=== PATIENT | male | born 2000 | race African-American/Black ===

== ENCOUNTER 2022-06-14 20:28 | Emergency (ER) | payer OTHER, SELFPAY ==
[2022-06-14] MEDS ORDERED: LIDOCAINE 1% MPF 5 ML VIAL ONE (21:24)
[2022-06-14] MEDS ORDERED: BUPIVACAINE 0.5% PF 10 ML VIAL ONE (21:25)
--- NOTE | 2022-06-14 22:06 | ER ---
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 Patient stated was playing basketball and was hit in the mouth by another players elbow. Patient denies any LOC. Coronavirus screen: Vaccine status: Patient reports being unvaccinated. Client denies travel out of the [place] in the last 14 days. At this time, the client does not indicate any symptoms associated with coronavirus-19. 20:46 Method Of Arrival: Ambulatory pf1 20:46 Ebola Screen: Patient negative for fever greater than or equal to 101.5 degrees pf1 Fahrenheit, and additional compatible Ebola Virus Disease symptoms. Initial Sepsis Screen: Does the patient meet any 2 criteria? No. Patient's initial sepsis screen is negative. Does the patient have a suspected source of infection? No. Patient's initial sepsis screen is negative. Risk Assessment: Do you want to hurt yourself or someone else? Patient reports no desire to harm self or others. Onset of symptoms was June 14, 2022. 20:46 Acuity: YVETTE 4 pf1 Historical: - Allergies: 21:02 No Known Allergies; pf1 - Home Meds: 21:02 None [Active]; pf1 - PMHx: 21:02 Seizure; pf1 - PSHx: 21:02 None; pf1 - Immunization history:: Adult Immunizations not up to date, Last tetanus immunization: < 10 years ago Flu vaccine is not up to date. - Social history:: Smoking status: Patient denies any tobacco usage or history of. Patient uses street drugs, marijuana, Patient/guardian denies using alcohol. Screenin:27 [facility] ED Fall Risk Assessment (Adult) History of falling in the last 3 months, lg3 including since admission No falls in past 3 months (0 pts). Abuse screen: Denies threats or abuse. Injuries were caused by another. Nutritional screening: No deficits noted. Tuberculosis screening: No symptoms or risk factors identified. Assessment: 21:27 General: Appears in no apparent distress. comfortable, Behavior is calm, cooperative. lg3 Pain: Complains of pain in lower vermilion border Pain currently is 4 out of 10 on a pain scale. Neuro: No deficits noted. Manley Agitation-Sedation Scale (RASS): 0 - Alert and Calm Level of Consciousness is awake, alert, obeys commands, Oriented to person, place, time, situation. Cardiovascular: No deficits noted. Denies chest pain, shortness of breath, Capillary refill < 3 seconds Clubbing of nail beds is absent JVD is absent Patient's skin is warm and dry. Respiratory: No deficits noted. Airway is patent Trachea midline Respiratory effort is even, unlabored, Respiratory pattern is regular, symmetrical. GI: No deficits noted. No signs and/or symptoms were reported involving the gastrointestinal system. : No deficits noted. No signs and/or symptoms were reported regarding the genitourinary system. EENT: No deficits noted. No signs and/or symptoms were reported regarding the EENT system. Derm: Wound noted lower vermilion border. Musculoskeletal: No deficits noted. No signs and/or symptoms reported regarding the musculoskeletal system. Circulation, motion, and sensation intact. Range of motion: intact in all extremities. Injury Description: Laceration sustained to lower vermilion border moderate bleeding noted at this time. Vital Signs: 20:46 BP 151 / 82; Pulse 68; Resp 18; Temp 98.6; Pulse Ox 100% on R/A; Weight 104.33 kg; pf1 Height 6 ft. 1 in. (185.42 cm); Pain 0/10; 20:46 Body Mass Index 30.34 (104.33 kg, 185.42 cm) pf1 ED Course: 20:32 Patient arrived in ED. ja2 20:50 Armond Burton NP is PHCP. pm1 20:50 Kei Coello MD is Attending Physician. pm1 21:02 Triage completed. pf1 21:04 Leelee Langston, LUCAS is Primary Nurse. lg3 21:27 Patient has correct armband on for positive identification. Placed in gown. Bed in low lg3 position. Call light in reach. Side rails up X 1. Client placed on continuous cardiac and pulse oximetry monitoring. NIBP monitoring applied. Door closed. Noise minimized. Warm blanket given. Family accompanied patient. 22:18 Arm band placed on right wrist. lg3 22:18 Assist provider with laceration repair on lower vermilion border using sutures. Set up lg3 tray. Performed by Armond Burton NP Patient tolerated well. Patient did not have IV access during this emergency room visit. Administered Medications: 22:04 Drug: Bupivacaine (0.5 %) 10 ml Volume: 10 ml; Route: Infiltration; lg3 22:17 Follow up: Response: No adverse reaction lg3 22:04 Drug: Lidocaine (1 %) 5 ml Volume: 5 ml; Route: Infiltration; lg3 22:17 Follow up: Response: No adverse reaction lg3 22:16 Drug: Tetanus-Diphtheria Toxoid Adult 0.5 ml {Bow String Maker: [employer]methods ([employer]). Exp: lg3 10/20/2122. Lot #: [id number]. } Route: IM; Site: right deltoid; 22:17 Follow up: Response: (VIS) Vaccine information sheet provided today. Questions and/or lg3 concerns addressed. VIS edition date: Nov 19, 2020.; No adverse reaction 22:16 Drug: Augmentin (Amoxicillin-Clavulanate) 875 mg Route: PO; lg3 22:17 Follow up: Response: No adverse reaction lg3 22:16 Drug: Ibuprofen 800 mg Route: PO; lg3 22:17 Follow up: Response: No adverse reaction lg3 Medication: 22:19 Vaccine Information Statement (VIS) provided today. Questions and/or concerns lg3 addressed. VIS edition date: November 19, 2020. Outcome: 22:05 Discharge ordered by . pm1 22:18 Discharged to home ambulatory, with family. lg3 22:18 Condition: stable 22:18 Discharge instructions given to patient, family, Instructed on discharge instructions, follow up and referral plans. medication usage, wound care, Demonstrated understanding of instructions, follow-up care, medications, wound care, Prescriptions given X 2. 22:19 Patient left the ED. lg3 Signatures: Armond Burton, CHRISTINA SLAB MILLER OPERATOR pm1 Leelee Langston, RN RN lg3 Марина Amato2 Dorothy hopkins, RN RN pf1
--- NOTE | 2022-06-14 22:06 | EDPHYS ---
Physician Documentation [facility] Name: Justen Salgado Age: 21 yrs Sex: Male : 2000 Arrival Date: 06/14/2022 Time: 20:32 Bed 14 Private MD: ED Physician Kei Coello HPI: 06/14 20:57 This 21 yrs old Black Male presents to ER via Ambulatory with complaints of Lip Injury. pm1 20:57 The patient presents with Laceration to lip. The problem is located in the mouth. pm1 Onset: The symptoms/episode began/occurred just prior to arrival. Duration: The symptoms are continuous. Modifying factors: The symptoms are alleviated by nothing, the symptoms are aggravated by nothing. Associated signs and symptoms: The patient has no apparent associated signs or symptoms, Pertinent negatives: dental pain or loose teeth. Severity of symptoms: in the emergency department the symptoms have improved, decreased bleeding. The patient has not experienced similar symptoms in the past. The patient has not recently seen a physician. Patient was elbowed while playing basketball. Historical: - Allergies: 21:02 No Known Allergies; pf1 - Home Meds: 21:02 None [Active]; pf1 - PMHx: 21:02 Seizure; pf1 - PSHx: 21:02 None; pf1 - Immunization history:: Adult Immunizations not up to date, Last tetanus immunization: < 10 years ago Flu vaccine is not up to date. - Social history:: Smoking status: Patient denies any tobacco usage or history of. Patient uses street drugs, marijuana, Patient/guardian denies using alcohol. ROS: 20:57 Constitutional: Negative for fever, chills, and weight loss. pm1 20:57 Cardiovascular: Negative for chest pain, palpitations, and edema, Respiratory: Negative for shortness of breath, cough, wheezing, and pleuritic chest pain, Skin: Negative for injury, rash, and discoloration, Neuro: Negative for headache, weakness, numbness, tingling, and seizure. 20:57 ENT: Positive for lip injury, Negative for dental pain. 20:57 All other systems are negative. Exam: 20:57 Constitutional: This is a well developed, well nourished patient who is awake, alert, pm1 and in no acute distress. Head/Face: Normocephalic, atraumatic. 20:57 Back: No spinal tenderness. No costovertebral tenderness. Full range of motion. Skin: Warm, dry with normal turgor. Normal color with no rashes, no lesions, and no evidence of cellulitis. MS/ Extremity: Pulses equal, no cyanosis. Neurovascular intact. Full, normal range of motion. 20:57 ENT: Mouth: laceration approximately 4 cm in length on the inside of patient's lower lip. 2.5 cm laceration present to lower lip below the tasneem border. 20:57 Cardiovascular: Exam negative for acute changes, Rate: normal, Rhythm: regular, Pulses: no pulse deficits are appreciated. 20:57 Respiratory: Exam negative for acute changes, respiratory distress, shortness of breath. 20:57 Neuro: Exam negative for acute changes, Orientation: is normal, Mentation: is normal, Motor: is normal, moves all fours. Vital Signs: 20:46 BP 151 / 82; Pulse 68; Resp 18; Temp 98.6; Pulse Ox 100% on R/A; Weight 104.33 kg; pf1 Height 6 ft. 1 in. (185.42 cm); Pain 0/10; 20:46 Body Mass Index 30.34 (104.33 kg, 185.42 cm) pf1 Laceration: 22:00 Wound Repair of 4cm ( 1.6in ) subcutaneous laceration to inner lower lip. Irregularly pm1 shaped.. Distal neuro/vascular/tendon intact. Anesthesia: Local anesthetic administered with 4 mls of Lido/Marcaine. Wound prep: Extensive cleansing by me, Wound irrigation with saline by me, Wound explored extensively, Copious irrigation. Skin closed with 7 4-0 Vicryl using simple sutures and sterile technique. Patient tolerated well. 22:00 Wound Repair of 2.5cm ( 1.0in ) subcutaneous laceration to lower lip below tasneem pm1 border. Irregularly shaped.. Distal neuro/vascular/tendon intact. Anesthesia: Local anesthetic administered with 1 mls of Lido/Marcaine. Wound prep: Extensive cleansing with hibiclenz by me, Wound irrigation with saline by me, Wound explored extensively, Copious irrigation. Skin closed with 5 5-0 Prolene using simple sutures and sterile technique. Dressed with Neosporin. Patient tolerated well. MDM: 20:53 Patient medically screened. pm1 22:00 Data reviewed: vital signs. pm1 22:03 Counseling: I had a detailed discussion with the patient and/or guardian regarding: the pm1 historical points, exam findings, and any diagnostic results supporting the discharge/admit diagnosis, the need for outpatient follow up, to return to the emergency department if symptoms worsen or persist or if there are any questions or concerns that arise at home, suture removal in 7-10 days. 06/14 20:57 Order name: Dressing - Wound; Complete Time: 21:18 pm1 06/14 20:57 Order name: Gloves, Sterile; Complete Time: 21:18 pm1 06/14 20:57 Order name: Prolene, Sutures; Complete Time: 21:19 pm1 06/14 20:57 Order name: Setup Suture Tray; Complete Time: 21:19 pm1 06/14 20:57 Order name: Vicryl, Sutures; Complete Time: 21:19 pm1 Administered Medications: 22:04 Drug: Bupivacaine (0.5 %) 10 ml Volume: 10 ml; Route: Infiltration; lg3 22:17 Follow up: Response: No adverse reaction lg3 22:04 Drug: Lidocaine (1 %) 5 ml Volume: 5 ml; Route: Infiltration; lg3 22:17 Follow up: Response: No adverse reaction lg3 22:16 Drug: Tetanus-Diphtheria Toxoid Adult 0.5 ml {Black Pickler: [employer] ([employer]). Exp: lg3 10/20/2122. Lot #: [id number]. } Route: IM; Site: right deltoid; 22:17 Follow up: Response: (VIS) Vaccine information sheet provided today. Questions and/or lg3 concerns addressed. VIS edition date: Nov 19, 2020.; No adverse reaction 22:16 Drug: Augmentin (Amoxicillin-Clavulanate) 875 mg Route: PO; lg3 22:17 Follow up: Response: No adverse reaction lg3 22:16 Drug: Ibuprofen 800 mg Route: PO; lg3 22:17 Follow up: Response: No adverse reaction lg3 Disposition: 23:55 Co-signature as Attending Physician, Kei Coello MD I reviewed the patient's care rt provided by the Advanced Practice Provider and agree with the diagnosis and treatment plan. Disposition Summary: 06/14/22 22:05 Discharge Ordered Location: Home pm1 Problem: new pm1 Symptoms: have improved pm1 Condition: Stable pm1 Diagnosis - Laceration of lip and oral cavity without foreign body pm1 Followup: pm1 - With: Emergency Department - When: As needed - Reason: Worsening of condition Followup: pm1 - With: Private Physician - When: 7 - 10 days - Reason: Recheck today's complaints, Continuance of care, Staple/Suture removal, Re-evaluation by your physician Discharge Instructions: - Discharge Summary Sheet pm1 - Mouth Laceration pm1 Forms: - Medication Reconciliation Form pm1 - Thank You Letter pm1 - Antibiotic Education pm1 - Prescription Opioid Use pm1 Prescriptions: - Augmentin 875-125 mg Oral Tablet - take 1 tablet by ORAL route every 12 hours for 10 days; 20 tablet; Refills: 0, pm1 Product Selection Permitted - Diclofenac Sodium 75 mg Oral tablet,delayed release (DR/EC) - take 1 tablet by ORAL route 2 times per day As needed; 30 tablet; Refills: 0, pm1 Product Selection Permitted Signatures: Armond Burton, CHRISTINA LEAD TECHNICIAN pm1 Leelee Langston, LUCAS RN lg3 Kei Coello MD MD rt Dorothy hopkins RN RN pf1
[2022-06-14] MEDS ORDERED: AMOX/K CLAV 875 MG TAB ONE (22:12)
[2022-06-14] MEDS ORDERED: IBUPROFEN 400 MG TAB ONE (22:13)
[2022-06-14 22:29] VITALS: BP 151/82; TEMP 98.6; O2SAT 100
== END 2022-06-14 22:19 | disposition home or self-care (01) ==
LOC: ER 20:28
PROC: 0HQ1XZZ Repair Face Skin, External Approach (ICD-10-PCS; principal; 2022-06-14)
DX: S01.511A Laceration without foreign body of lip, initial encounter (principal)
CPT/HCPCS: J2001

== ENCOUNTER 2022-06-29 00:10 | Emergency (ER) | payer SELFPAY ==
--- NOTE | 2022-06-29 00:43 | ER ---
Nurse's Notes [facility] Name: Justen Salgado Age: 21 yrs Sex: Male : 2000 Arrival Date: 06/29/2022 Time: 00:13 Bed 12 Private MD: Diagnosis: Encounter for removal of sutures;Laceration without foreign body of lip Presentation: 06/29 00:21 Chief complaint: Patient states: pt had sutures to lip and needs them removed. bb Coronavirus screen: At this time, the client does not indicate any symptoms associated with coronavirus-19. Ebola Screen: No symptoms or risks identified at this time. Initial Sepsis Screen: Does the patient meet any 2 criteria? No. Patient's initial sepsis screen is negative. Does the patient have a suspected source of infection? No. Patient's initial sepsis screen is negative. Risk Assessment: Do you want to hurt yourself or someone else? Patient reports no desire to harm self or others. Onset of symptoms was June 29, 2022. 00:21 Method Of Arrival: Ambulatory bb 00:21 Acuity: YVETTE 5 bb Triage Assessment: 00:33 General: Appears in no apparent distress. Behavior is calm, cooperative. Pain: Denies bb pain. Neuro: Level of Consciousness is awake, alert, obeys commands, Oriented to person, place, time, situation. Cardiovascular: No deficits noted. Respiratory: Respiratory effort is even, unlabored. GI: No signs and/or symptoms were reported involving the gastrointestinal system. Derm: suture line to inside and outside of lower lip intact. Musculoskeletal: Circulation, motion, and sensation intact. Historical: - Allergies: 00:33 No Known Allergies; bb - Immunization history:: Adult Immunizations unknown. - Social history:: Smoking status: unknown. Assessment: 00:34 Reassessment: No changes from previously documented assessment. Dr Mathew at bedside bb for suture removal. Vital Signs: 00:21 BP 136 / 75; Pulse 57; Resp 16 S; Temp 98.4(O); Pulse Ox 100% on R/A; bb ED Course: 00:13 Patient arrived in ED. ja2 00:25 Shaun Mathew MD is Attending Physician. sp4 00:33 Triage completed. bb 00:33 Arm band placed on Patient placed in an exam room, on a stretcher. bb Administered Medications: No medications were administered Outcome: 00:42 Discharge ordered by . sp4 Signatures: Lena Coronel RN RN bb Alexander, Jessica ja2 Potepalov, Sergey, MD MD sp4
--- NOTE | 2022-06-29 00:43 | EDPHYS ---
Physician Documentation [facility] Name: Justen Salgado Age: 21 yrs Sex: Male : 2000 Arrival Date: 06/29/2022 Time: 00:13 Bed 12 Private MD: ED Physician Shaun Mathew HPI: 06/29 00:25 This 21 yrs old Black Male presents to ER via Unassigned with complaints of Suture sp4 Removal. Historical: - Allergies: 00:33 No Known Allergies; bb - Immunization history:: Adult Immunizations unknown. - Social history:: Smoking status: unknown. Vital Signs: 00:21 BP 136 / 75; Pulse 57; Resp 16 S; Temp 98.4(O); Pulse Ox 100% on R/A; bb MDM: 00:33 Patient medically screened. sp4 Administered Medications: No medications were administered Disposition Summary: 06/29/22 00:42 Discharge Ordered Location: Home sp4 Problem: new sp4 Symptoms: are resolved sp4 Condition: Stable sp4 Diagnosis - Encounter for removal of sutures sp4 - Laceration without foreign body of lip sp4 Followup: sp4 - With: Private Physician - When: As needed - Reason: Forms: - Medication Reconciliation Form sp4 - Thank You Letter sp4 - Antibiotic Education sp4 - Prescription Opioid Use sp4 Signatures: Lena Coronel RN RN Shaun Toledo MD MD sp4
[2022-06-29 09:48] VITALS: BP 136/75; TEMP 98.4; O2SAT 100
== END 2022-06-29 00:44 | disposition home or self-care (01) ==
LOC: ER 00:10
DX: Z48.02 Encounter for removal of sutures (principal)
CPT/HCPCS: 99281

== ENCOUNTER 2023-01-01 22:15 | Emergency (ER) | payer SELFPAY ==
--- NOTE | 2023-01-02 03:06 | EDPHYS ---
Physician Documentation [facility] Name: Justen Salgado Age: 22 yrs Sex: Male : 2000 Arrival Date: 01/01/2023 Time: 22:15 Bed IW2 Private MD: ED Physician Shaun Mathew HPI: 01/02 00:50 This 22 yrs old Black Male presents to ER via Ambulatory with complaints of Finger kb swelling/pain, patient denies any injury. 00:50 The patient or guardian reports decreased range of motion, pain, swelling. The kb complaints affect the left little finger. Context: The problem was sustained at home, resulted from an unknown cause, woke up with symptoms. Onset: The symptoms/episode began/occurred this morning. Modifying factors: The symptoms are alleviated by nothing, the symptoms are aggravated by nothing. Associated signs and symptoms: The patient has no apparent associated signs or symptoms. Severity of symptoms: At their worst the symptoms were moderate, in the emergency department the symptoms are unchanged. The patient has not experienced similar symptoms in the past. The patient has not recently seen a physician. Historical: - Allergies: 01/01 22:50 No Known Allergies; me1 - PMHx: 22:50 Seizure; me1 - PSHx: 22:50 None; me1 - Immunization history:: Adult Immunizations up to date. - Social history:: Smoking status: Patient denies any tobacco usage or history of. ROS: 01/02 00:49 Constitutional: Negative for fever, chills, and weight loss, kb MS/extremity: Positive for decreased range of motion, erythema, pain, swelling, tenderness, of the left little finger, 00:49 All other systems are negative, kb Exam: 00:49 Constitutional: This is a well developed, well nourished patient who is awake, alert, kb and in no acute distress. Head/Face: Normocephalic, atraumatic. ENT: Moist Mucous membranes Cardiovascular: Regular rate Respiratory: Respirations even and unlabored. No increased work of breathing. Talking in full sentences Skin: Warm, dry with normal turgor. Normal color. Neuro: Awake and alert, GCS 15, oriented to person, place, time, and situation. Moves all extremities. Normal gait. 00:49 Musculoskeletal/extremity: Extremities: grossly normal except: noted in the left little finger: decreased ROM, erythema, pain, swelling, ROM: limited active range of motion due to pain, Circulation is intact in all extremities. Sensation intact. Vital Signs: 01/01 22:47 BP 134 / 84; Pulse 58; Resp 16; Temp 98.8(O); Pulse Ox 100% on R/A; Weight 114.99 kg; me1 Height 6 ft. 1 in. ; Pain 10/10; 22:47 Body Mass Index 33.44 (114.99 kg, 185.42 cm) me1 22:47 Pain Scale: Adult me1 MDM: 22:42 Patient medically screened. kb 01/02 00:50 Differential diagnosis: dislocation, closed fracture, contusion, cellulitis. Data kb reviewed: vital signs, nurses notes. 16:01 Counseling: I had a detailed discussion with the patient and/or guardian regarding the kb historical points, exam findings, and any diagnostic results supporting the discharge/admit diagnosis, radiology results, the need for outpatient follow up, a orthopedic surgeon, to return to the emergency department if symptoms worsen or persist or if there are any questions or concerns that arise at home. 01/01 22:47 Order name: Hand Left 3 View XRAY kb Administered Medications: No medications were administered Disposition: 08:34 Co-signature as Attending Physician, Shaun Mathew MD I agree with the assessment sp4 and plan of care. I reviewed the patient's care provided by the Advanced Practice Provider and agree with the diagnosis and treatment plan. Disposition Summary: 01/02/23 03:05 Discharge Ordered Notes: Location: Home as6 Condition: Stable as6 Diagnosis - Other fracture of fifth metacarpal bone, right hand as6 Forms: - Medication Reconciliation Form as6 - Thank You Letter as6 - Antibiotic Education as6 - Prescription Opioid Use as6 - Patient Portal Instructions as6 - Leadership Thank You Letter as6 Signatures: Dispatcher [employer] Mirtha Renteria FNP-C FNP-Aldo Rosen RN RN as6 Shaun Mathew MD MD sp4 Tasneem Amin RN RN me1 Corrections: (The following items were deleted from the chart) 00:49 00:49 MS/extremity: Positive for decreased range of motion, erythema, pain, swelling, kb tenderness, kb
--- NOTE | 2023-01-02 03:06 | ER ---
Nurse's Notes [facility] Name: Justen Salgado Age: 22 yrs Sex: Male : 2000 Arrival Date: 01/01/2023 Time: 22:15 Bed IW2 Private MD: Diagnosis: Other fracture of fifth metacarpal bone, right hand Presentation: 01/01 22:47 Chief complaint: Patient states: c/o left 5th digit swelling and pain that started last me1 night. Coronavirus screen: Vaccine status: Patient reports being unvaccinated. Ebola Screen: No symptoms or risks identified at this time. Initial Sepsis Screen: Does the patient meet any 2 criteria? No. Patient's initial sepsis screen is negative. Does the patient have a suspected source of infection? No. Patient's initial sepsis screen is negative. Risk Assessment: Do you want to hurt yourself or someone else? Patient reports no desire to harm self or others. Onset of symptoms was December 31, 2022. 22:47 Method Of Arrival: Ambulatory me1 22:47 Acuity: YVETTE 4 me1 Historical: - Allergies: 22:50 No Known Allergies; me1 - PMHx: 22:50 Seizure; me1 - PSHx: 22:50 None; me1 - Immunization history:: Adult Immunizations up to date. - Social history:: Smoking status: Patient denies any tobacco usage or history of. Assessment: 01/02 03:04 General: see downtime forms. as6 Vital Signs: 01/01 22:47 BP 134 / 84; Pulse 58; Resp 16; Temp 98.8(O); Pulse Ox 100% on R/A; Weight 114.99 kg; me1 Height 6 ft. 1 in. ; Pain 10/10; 22:47 Body Mass Index 33.44 (114.99 kg, 185.42 cm) me1 22:47 Pain Scale: Adult me1 ED Course: 22:19 Patient arrived in ED. jj6 22:42 Mirtha Walsh FNP-C is PHCP. kb 22:42 Shaun Mathew MD is Attending Physician. kb 22:50 Triage completed. me1 22:50 Arm band placed on Patient placed in waiting room. me1 01/02 00:37 Hand Left 3 View XRAY In Process Unspecified. EDMS Administered Medications: No medications were administered Outcome: 03:05 Discharge ordered by as6 03:05 Patient left the ED. as6 Signatures: Dispatcher [employer] EDMirtha Payan FNP-C FNP-Farzana Ma jj6 Aldo Naranjo RN RN as6 aTsneem Amin RN RN me1
[2023-01-02 03:09] VITALS: BP 134/84; TEMP 98.8; O2SAT 100
--- NOTE | 2023-01-02 17:55 | RAD REPORT ---
EXAM DESCRIPTION: RAD - Hand Left 3 View - 01/02/2023 12:35 am CLINICAL HISTORY: 22 years Male, PAIN COMPARISON: None. FINDINGS: 3 views of the left hand. Normal osseous mineralization. Tiny linear osseous structure bruno ng the distal ulnar aspect of the fifth digit middle phalanx. This could represent an acute displaced fracture fragment. No joint dislocation. Mild soft tissue edema at the level of the wrist. No radiop aque foreign body IMPRESSION: Possible tiny displaced fracture fragment along the distal aspect of the fifth digit mid dle phalanx. Correlate with site of pain/trauma. Electronically signed by: Luna Tierney MD 01/02/2023 1:22 AM CDT Due to temporary technical issues with the PACS/Fluency reporting system, reports are being signed by the in house radiologists without review as a courtesy to insure prompt reporting. The interpreting radiologist is fully responsible for the content of the report
== END 2023-01-02 03:05 | disposition home or self-care (01) ==
LOC: ER 22:15
DX: S62.396A Other fracture of fifth metacarpal bone, right hand, initial encounter for closed fracture (principal)

== ENCOUNTER 2024-06-20 13:29 | Emergency (ER) | payer OTHER, SELFPAY ==
[2024-06-20] MEDS ORDERED: NA CHLORIDE 0.9% 1,000 ML ONE (14:27)
[2024-06-20 14:28] LABS: Absolute Basophils 0.1 K/uL (0-0.5); Absolute Eosinophils 0.1 K/uL (0-0.5); Absolute Lymphocytes (CBC) 2.4 K/uL (0.7-4.9); Absolute Monocytes 0.9 K/uL (0.1-1.3); Absolute Neutrophil 4.4 K/uL (1.8-8.0); Basophils % 0.8 % (0-1.3); Eosinophils % 1.8 % (0-4.4); Hematocrit 45.9 % (39.6-49.0); Hemoglobin 16.5 g/dL (13.6-17.9); Lymphocytes % 30.6 % (15.3-44.8); MCHC 35.9 g/dL (32.0-36.0); MCV 89.2 fL (80-100); MPV 8.2 fL (7.6-11.3); Monocytes % 11.5 % (3.3-12.3); Neutrophils % 55.3 % (41.7-73.7); Nucleated Red Blood Cells % 0.1 % (0-0); Platelets 327 thou/uL (152-406); RBC Red Blood Cell Count 5.15 M/uL (4.33-5.43); Red Cell Distribution Width 12.8 % (12.1-15.2)
[2024-06-20 14:35] LABS: PTT, Activated Partial Thromb 30.6 SECONDS (24.3-36.9); Protime INR 1.24
[2024-06-20 14:47] LABS: Barbiturates NEGATIVE (NEGATIVE); Benzodiazepines NEGATIVE (NEGATIVE); Cocaine NEGATIVE (NEGATIVE); METHAMPHETAM NEGATIVE (NEGATIVE); Methadone NEGATIVE (NEGATIVE); Opiates NEGATIVE (NEGATIVE); Phencyclidine NEGATIVE (NEGATIVE); THC Cannibis POSITIVE (NEGATIVE)
[2024-06-20 14:49] LABS: ALT/SGPT 18 U/L (16-61); AST/SGOT 14 U/L (15-37); Albumin 4.2 g/dL (3.4-5.0); Albumin/Globulin Ratio 1.1 (1.1-1.8); Alkaline Phosphatase 60 U/L (45-117); Anion Gap 10.5 mEq/L (5.0-15.0); BUN Blood Urea Nitrogen 15 mg/dL (7-18); Bicarbonate 26 mEq/L (21-32); Bilirubin Direct 0.3 mg/dL (0-0.2); Bilirubin Indirect, Calculated 0.9 mg/dL (0.2-0.8); Bilirubin Total 1.2 mg/dL (0.2-1.0); Globulin 3.9 g/dL (2.3-3.5); Glomerular Filtration Rate 73 ml/min (=/>90); Glucose Level 118 mg/dL (74-106); Potassium 3.5 mEq/L (3.5-5.1); Protein, Total 8.1 g/dL (6.4-8.2); Sodium Level 137 mEq/L (136-145)
--- NOTE | 2024-06-20 15:25 | EDPHYS ---
Physician Documentation [facility] Name: Justen Salgado Age: 23 yrs Sex: Male : 2000 Arrival Date: 06/20/2024 Time: 13:29 Bed 20 Private MD: ED Physician Kaushik Dill HPI: 06/20 15:17 This 23 yrs old Black Male presents to ER via EMS with complaints of Dizziness. harinder 15:17 The patient presents with dizziness, generalized weakness. Onset: The symptoms/episode harinder began/occurred just prior to arrival, this morning. Context: occurred at home, occurred while the patient was at rest. Modifying factors: The symptoms are alleviated by nothing, the symptoms are aggravated by nothing. Associated signs and symptoms: The patient has no apparent associated signs or symptoms. Severity of symptoms: At their worst the symptoms were mild in the emergency department the symptoms are unchanged. Patient's baseline: Neuro: alert and fully oriented. The patient has not experienced similar symptoms in the past. Historical: - Allergies: 13:36 No Known Allergies; me1 - Home Meds: 13:36 None [Active]; me1 - PMHx: 13:36 Seizure; me1 - PSHx: 13:36 None; me1 - Immunization history:: Adult Immunizations up to date. - Infectious Disease History:: Denies. - Social history:: Smoking status: Reported history of juuling and/or vaping. Patient uses street drugs, marijuana. - Family history:: not pertinent. ROS: 15:17 Constitutional: Negative for fever, chills, and weight loss, Eyes: Negative for injury, harinder pain, redness, and discharge, ENT: Negative for injury, pain, and discharge, Neck: Negative for injury, pain, and swelling, Cardiovascular: Negative for chest pain, palpitations, and edema, Respiratory: Negative for shortness of breath, cough, wheezing, and pleuritic chest pain, Abdomen/GI: Negative for abdominal pain, nausea, vomiting, diarrhea, and constipation, Back: Negative for injury and pain, : Negative for injury, bleeding, discharge, and swelling, MS/Extremity: Negative for injury and deformity, Skin: Negative for injury, rash, and discoloration, Neuro: Negative for headache, weakness, numbness, tingling, and seizure, Psych: Negative for depression, anxiety, suicide ideation, homicidal ideation, and hallucinations, Allergy/Immunology: Negative for hives, rash, and allergies, Endocrine: Negative for neck swelling, polydipsia, polyuria, polyphagia, and marked weight changes, Hematologic/Lymphatic: Negative for swollen nodes, abnormal bleeding, and unusual bruising, Exam: 15:21 Constitutional: This is a well developed, well nourished patient who is awake, alert, harinder and in no acute distress. Head/Face: Normocephalic, atraumatic. Eyes: Pupils equal round and reactive to light, extra-ocular motions intact. Lids and lashes normal. Conjunctiva and sclera are non-icteric and not injected. Cornea within normal limits. Periorbital areas with no swelling, redness, or edema. ENT: Nares patent. No nasal discharge, no septal abnormalities noted. Tympanic membranes are normal and external auditory canals are clear. Oropharynx with no redness, swelling, or masses, exudates, or evidence of obstruction, uvula midline. Mucous membranes moist. Neck: Trachea midline, no thyromegaly or masses palpated, and no cervical lymphadenopathy. Supple, full range of motion without nuchal rigidity, or vertebral point tenderness. No Meningismus. Chest/axilla: Normal chest wall appearance and motion. Nontender with no deformity. No lesions are appreciated. Cardiovascular: Regular rate and rhythm with a normal S1 and S2. No gallops, murmurs, or rubs. Normal PMI, no JVD. No pulse deficits. Respiratory: Lungs have equal breath sounds bilaterally, clear to auscultation and percussion. No rales, rhonchi or wheezes noted. No increased work of breathing, no retractions or nasal flaring. Abdomen/GI: Soft, non-tender, with normal bowel sounds. No distension or tympany. No guarding or rebound. No evidence of tenderness throughout. Back: No spinal tenderness. No costovertebral tenderness. Full range of motion. Male : Normal genitalia with no discharge or lesions. Skin: Warm, dry with normal turgor. Normal color with no rashes, no lesions, and no evidence of cellulitis. MS/ Extremity: Pulses equal, no cyanosis. Neurovascular intact. Full, normal range of motion., bilateral aka Neuro: Awake and alert, GCS 15, oriented to person, place, time, and situation. Cranial nerves II-XII grossly intact. Motor strength 5/5 in all extremities. Sensory grossly intact. Cerebellar exam normal. Normal gait. Psych: Awake, alert, with orientation to person, place and time. Behavior, mood, and affect are within normal limits. 15:21 Musculoskeletal/extremity: ROM: no acute changes, intact in all extremities, Circulation is intact in all extremities. Sensation intact. Compartment Syndrome exam of affected extremity: is normal. no pain, no numbness, no tingling, no sensation deficit, no palor, no weak pulses, Joints: All joints appear normal with full range of motion. Weight bearing: able to fully bear weight, DVT Exam: No signs of deep vein thrombosis. no pain, no swelling, no tenderness, negative Homans' sign noted on exam, no appreciated bluish discoloration, no erythema, no increased warmth, Calves: are non-tender, have equal circumference, Vital Signs: 13:31 BP 121 / 78; Pulse 120; Resp 20; Temp 98.6; Pulse Ox 96% ; Weight 136.08 kg; Height 6 me1 ft. 1 in. ; Pain 0/10; 14:00 BP 123 / 84; Pulse 91; Resp 16; Pulse Ox 96% ; me1 14:21 BP 139 / 81 Supine; Pulse 97; me1 14:21 BP 144 / 77 Sitting; Pulse 106; me1 14:21 BP 131 / 80 Standing; Pulse 90; me1 15:00 BP 117 / 83; Pulse 69; Resp 17; Pulse Ox 99% ; me1 15:39 BP 115 / 80; Pulse 70; Resp 16; Temp 98.2; Pulse Ox 97% ; me1 13:31 Body Mass Index 39.58 (136.08 kg, 185.42 cm) me1 13:31 Pain Scale: Adult me1 MDM: 13:34 Medical Screening Exam initiated harinder 15:22 Differential diagnosis: cardiac arrhythmia, CVA, generalized weakness, GI bleed, harinder hypovolemia, idiopathic dizziness, near-syncope, vertigo. Data reviewed: vital signs, nurses notes, lab test result(s), EKG, radiologic studies, plain films. Consideration of Admission/Observation Escalation of care including admission/observation considered. I considered the following discharge prescriptions or medication management in the emergency department Medications were administered in the Emergency Department. See MAR. Independent interpretation of the following test(s) in the Emergency Department EKG: See my EKG interpretation above. Test considered but Not performed: Ultrasound no venous doppler. Historians other than the Patient: Family Member: family well informed. Care significantly affected by the following chronic conditions: seizures. Counseling: I had a detailed discussion with the patient and/or guardian regarding the historical points, exam findings, and any diagnostic results supporting the discharge/admit diagnosis, lab results, radiology results, the need for outpatient follow up, for definitive care, a family practitioner. 06/20 13:59 Order name: Acetaminophen; Complete Time: 15:07 [facility] 06/20 13:59 Order name: Basic Metabolic Panel; Complete Time: 15:07 [facility] 06/20 13:59 Order name: CBC with Diff; Complete Time: 15:07 harinder 06/20 13:59 Order name: ETOH Level; Complete Time: 15:07 06/20 13:59 Order name: Hepatic Function; Complete Time: 15:07 [facility] 06/20 13:59 Order name: PT-INR; Complete Time: 15:07 harinder 06/20 13:59 Order name: Ptt, Activated; Complete Time: 15:07 [facility] 06/20 13:59 Order name: Salicylate; Complete Time: 15:07 [facility] 06/20 13:59 Order name: Urine Drug Screen; Complete Time: 15:07 harinder 06/20 14:01 Order name: Troponin High Sensitivity; Complete Time: 15:07 me1 06/20 15:08 Order name: Chest Pa And Lat (2 Views) XRAY 06/20 13:35 Order name: EKG; Complete Time: 13:35 harinder 06/20 13:35 Order name: EKG - Nurse/Tech; Complete Time: 14:08 06/20 13:35 Order name: Orthostatics; Complete Time: 14:26 [facility] 06/20 13:35 Order name: PO challenge; Complete Time: 15:21 [facility] 06/20 13:59 Order name: IV Saline Lock; Complete Time: 14:20 06/20 13:59 Order name: Labs collected and sent; Complete Time: 14:20 harinder EC:21 Rate is 99 beats/min. Rhythm is regular. QRS [place] is Normal. DC interval is normal. QRS harinder interval is normal. QT interval is normal. No Q waves. T waves are Normal. No ST changes noted. Clinical impression: NSR w/ Non-specific ST/T Changes and No evidence of ischemia. Interpreted by me. Reviewed by me. Administered Medications: 14:26 Drug: NS 0.9% IV 1000 ml IV at 1000 ml once; to be given as a bolus over 60 minutes me1 Route: IV; Rate: 1000 ml; Site: right antecubital; 15:41 Follow up: Response: No adverse reaction; IV Status: Completed infusion me1 Disposition Summary: 06/20/24 15:24 Discharge Ordered Notes: Location: Home harinder Problem: new harinder Symptoms: have improved harinder Condition: Stable harinder Diagnosis - Dizziness and giddiness harinder - Tachycardia, unspecified harinder Followup: harinder - With: Private Physician - When: 2 - 3 days - Reason: Recheck today's complaints, Continuance of care, Re-evaluation by your physician Followup: harinder - With: Saul Velez MD - When: 2 - 3 days - Reason: Recheck today's complaints, Re-evaluation by your physician Discharge Instructions: - Discharge Summary Sheet harinder - Dizziness harinder - Aspirin and Your Heart harinder - Dizziness, Orgm-eu-Vids harinder Forms: - Medication Reconciliation Form harinder - Antibiotic Education harinder - Prescription Opioid Use harinder - Patient Portal Instructions harinder - Leadership Thank You Letter harinder Signatures: Dispatcher [employer] EDKaushik Freeman MD MD cha Eddleman, Michelle, RN RN me1 Corrections: (The following items were deleted from the chart) 13:36 13:36 PMHx: Seizure; me1 me1 14:01 14:01 Troponin High Sensitivity+C.LAB.BRZ ordered. EDMS EDMS 15:08 15:08 Chest Pa And Lat (2 Views)+RAD.RAD.BRZ ordered. EDMS EDMS
--- NOTE | 2024-06-20 15:25 | ER ---
Nurse's Notes [facility] Name: Justen Salgado Age: 23 yrs Sex: Male : 2000 Arrival Date: 06/20/2024 Time: 13:29 Bed 20 Private MD: Diagnosis: Dizziness and giddiness;Tachycardia, unspecified Presentation: 06/20 13:31 Chief complaint: EMS states: toned out for dizziness, lightheadedness on awakening this me1 morning. States he doesn't feel light he's breathing right. tachycardic w/HR up to 140s. BGL 99. Coronavirus screen: Vaccine status: Patient reports being unvaccinated. Ebola Screen: No symptoms or risks identified at this time. Initial Sepsis Screen: Does the patient meet any 2 criteria? HR > 90 bpm. No. Patient's initial sepsis screen is negative. Does the patient have a suspected source of infection? No. Patient's initial sepsis screen is negative. Risk Assessment: Do you want to hurt yourself or someone else? Patient reports no desire to harm self or others. Onset of symptoms was June 20, 2024 at 12:10. 13:31 Method Of Arrival: EMS: [facility] 13:31 Acuity: YVETTE 3 me1 Triage Assessment: 13:36 General: Appears well groomed, well developed, well nourished, Behavior is calm, me1 cooperative, appropriate for age. Pain: Denies pain. EENT: No signs and/or symptoms were reported regarding the EENT system. Neuro: Level of Consciousness is awake, alert, obeys commands, Oriented to person, place, time, situation, Appropriate for age Reports dizziness. Cardiovascular: Patient's skin is warm and dry. Respiratory: Reports shortness of breath Airway is patent Respiratory effort is even, unlabored, Respiratory pattern is regular, symmetrical. GI: No signs and/or symptoms were reported involving the gastrointestinal system. : No signs and/or symptoms were reported regarding the genitourinary system. Derm: Skin is intact, is healthy with good turgor, Skin is pink, warm \T\ dry. Musculoskeletal: No signs and/or symptoms reported regarding the musculoskeletal system. Historical: - Allergies: 13:36 No Known Allergies; me1 - Home Meds: 13:36 None [Active]; me1 - PMHx: 13:36 Seizure; me1 - PSHx: 13:36 None; me1 - Immunization history:: Adult Immunizations up to date. - Infectious Disease History:: Denies. - Social history:: Smoking status: Reported history of juuling and/or vaping. Patient uses street drugs, marijuana. - Family history:: not pertinent. Screenin:38 [facility] ED Fall Risk Assessment (Adult) History of falling in the last 3 months, mt1 including since admission No falls in past 3 months (0 pts) Confusion or Disorientation No (0 pts) Intoxicated or Sedated No (0 pts) Impaired Gait No (0 pts) Mobility Assist Device Used No (0 pt) Altered Elimination No (0 pt) Score/Fall Risk Level 0 - 2 = Low Risk Maintained a safe environment, Provided non-skid footwear, Hourly rounding (assess needs \T\ fall precautionary measures) done. Abuse screen: Denies threats or abuse. Nutritional screening: No deficits noted. Tuberculosis screening: No symptoms or risk factors identified. Assessment: 13:38 General: See triage assessment.. me1 Vital Signs: 13:31 BP 121 / 78; Pulse 120; Resp 20; Temp 98.6; Pulse Ox 96% ; Weight 136.08 kg; Height 6 me1 ft. 1 in. ; Pain 0/10; 14:00 BP 123 / 84; Pulse 91; Resp 16; Pulse Ox 96% ; me1 14:21 BP 139 / 81 Supine; Pulse 97; me1 14:21 BP 144 / 77 Sitting; Pulse 106; me1 14:21 BP 131 / 80 Standing; Pulse 90; me1 15:00 BP 117 / 83; Pulse 69; Resp 17; Pulse Ox 99% ; me1 15:39 BP 115 / 80; Pulse 70; Resp 16; Temp 98.2; Pulse Ox 97% ; me1 13:31 Body Mass Index 39.58 (136.08 kg, 185.42 cm) me1 13:31 Pain Scale: Adult mt1 ED Course: 13:30 Patient arrived in ED. me1 13:34 Kaushik Dill MD is Attending Physician. [facility] 13:36 Triage completed. me1 13:36 Arm band placed on Patient placed in an exam room. me1 13:38 Patient has correct armband on for positive identification. Bed in low position. Call me1 light in reach. Side rails up X 1. Provided Education on: POC. Verbalized understanding.. Client placed on continuous cardiac and pulse oximetry monitoring. NIBP monitoring applied. quality assurance monitor final on. Pulse ox on. NIBP on. 13:38 No provider procedures requiring assistance completed. me1 14:07 Tasneem Amin, RN is Primary Nurse. me1 14:08 EKG done, by ED staff, reviewed by Kaushik Dill MD. me1 14:19 Initial lab(s) drawn, by me, sent to lab. Urine collected: clean catch specimen, donato me1 colored. Inserted saline lock: 20 gauge in right antecubital area, using aseptic technique. 14:20 Troponin High Sensitivity Sent. me1 14:20 Acetaminophen Sent. me1 14:20 Basic Metabolic Panel Sent. me1 14:20 CBC with Diff Sent. me1 14:20 ETOH Level Sent. me1 14:20 Hepatic Function Sent. me1 14:20 PT-INR Sent. me1 14:20 Ptt, Activated Sent. me1 14:20 Salicylate Sent. me1 14:20 Urine Drug Screen Sent. me1 15:24 Saul Velez MD is Referral Physician. [facility] 15:30 Chest Pa And Lat (2 Views) XRAY In Process Unspecified. EDNV 15:42 IV discontinued, intact, bleeding controlled, No redness/swelling at site. Pressure me1 dressing applied. Administered Medications: 14:26 Drug: NS 0.9% IV 1000 ml IV at 1000 ml once; to be given as a bolus over 60 minutes me1 Route: IV; Rate: 1000 ml; Site: right antecubital; 15:41 Follow up: Response: No adverse reaction; IV Status: Completed infusion me1 Medication: 13:38 VIS not applicable for this client. me1 Outcome: 15:24 Discharge ordered by . [facility] 15:42 Discharged to home ambulatory, with family, me1 15:42 Condition: stable 15:42 Discharge instructions given to patient, Instructed on discharge instructions, follow up and referral plans. Demonstrated understanding of instructions, follow-up care, 15:43 Patient left the ED. me1 Signatures: Dispatcher [employer] Kaushik Lyons MD MD cha Eddleman, Michelle, RN RN me1 Corrections: (The following items were deleted from the chart) 13:36 13:36 PMHx: Seizure; me1 me1
--- NOTE | 2024-06-20 16:01 | RAD REPORT ---
EXAM: Chest Pa And Lat (2 Views) HISTORY: 23 years Male DYSPNEA COMPARISON: None. FINDINGS: LUNGS/PLEURA: The lungs are clear. No pleural effusions or pneumothorax. No pulmonary edema. CARDIAC/MEDIASTINUM: The cardiac silhouette is within normal limits. UPPER ABDOMEN: No significant abnormality. BONES: No acute abnormality. LINES/TUBES/OTHER: N/A IMPRESSION: No evidence of acute cardiopulmonary disease.
[2024-06-20 16:11] VITALS: BP 115/80; TEMP 98.2; O2SAT 97
--- NOTE | 2024-06-24 11:16 | EKG ---
Test Date: 2024-06-20 Test Time: 14:02:51 [employer]orer: MEASUREMENT RESULTS: Intervals: Rate: 99 GA: 130 QRSD: 86 QT: 340 QTc: 436 [place]: P: 28 GA: 130 QRS: 77 T: 8 INTERPRETIVE STATEMENTS: Normal sinus rhythm T wave abnormality, consider inferior ischemia Abnormal ECG No previous ECG available for comparison Electronically Signed On 06-24-24 11:04:22 CDT by Zhao Jackson
== END 2024-06-20 15:43 | disposition home or self-care (01) ==
LOC: ER 13:29
DX: R42 Dizziness and giddiness (principal); R00.0 Tachycardia, unspecified
CPT/HCPCS: 93005; 85025; 80048; 36415; 85610; 80076; 85730; 84484; 80307; 71046; 96360; 99285; 80143; 80179; 82077; J7030

== ENCOUNTER 2024-07-09 18:50 | Emergency (ER) | payer OTHER ==
--- OUTSIDE RECORDS SUMMARY | 2024-07-09 18:54 | XMS REPORT | Continuity of Care Document ---
Author Name Unknown Address [address] [place] [address] [facility] Address [address] [place] [address] Care Team Providers Care Pickler Helper Name Role Phone EMMETT FIELDS Primary Care Physician Unav ailable JOHN ANDRE Attending Clinician Unavailable John Valle Attending Clinician [phone] Slime SMART Attending Clinician Unavailable Slime SMART Attending Clinician Unavailable Slime Antunez Attending Clinician Payers Payer Name Policy Type Policy Number Effective Date Expirati on Date Source [facility] [id number] 2024 00:00:00 Problems Condition Name Condition Details Condition Category Status Onset Date Resolution Date Last Treatment Date Treating Clinician Comments Source Epilepsy Epilepsy Disease Active 2009-04 00:00: 00 [facility] Allergies, Adverse Reactions, Alerts Allergy Name Allergy Type Status Severity Reaction(s) Onset Date Inactive Date Treating Clinician Comments Source NO KNOWN ALLERGIE S Drug Class Active [facility] Social History Social Habit Start Date Stop Date Quantity Comments Source Sexual orientation U [facility] Sex assigned at 2000 00:00:00 2000 00:00:00 [facility] Smoking Status Start Date Stop Date Source Tobacco smoking consumption unknown [facility] Medications Ordered Medication Name Filled Medication Name Start Date Stop Date Current Medication? Ordering Clinician Indication Dosage Frequency Signature (SIG) Comments Components Source levocetiriz ine 5 mg tablet 07-08 00:00: 00 Yes [id number] 5mg Take 1 tablet by mouth every evening. [facility] benzonatate 200 mg capsule 07-08 00:00: 00 Yes [id number] 200mg Take 1 capsule by mouth 3 (three) times daily as needed for Cough. [facility] ipratropium -albuteroL (DUONEB) 0.5 mg-3 mg(2.5 mg base)/3 mL nebulizer solution 3 mL 07-06 16:15: 00 07-06 15:20 :00 No 3mL 3 mL, Inhalation , ONCE, 1 dose, On 07/06/24 at 1115, Routine [facility] mometasone (NASONEX 24HR ALLERGY) 50 mcg/actuati on nasal spray 07-06 00:00: 00 Yes [id number] 2{spray } Use 2 Sprays in each nostril in the morning. [facility] methylPREDN ISolone 4 mg tablets 07-06 00:00: 00 Yes [id number] Take by mouth SEE-INSTRU CTIONS. follow package directions [facility] albuterol sulfate HFA 90 mcg/actuati on aerosol inhaler 07-06 00:00: 00 Yes [id number] 2{puff} Inhale 2 Puffs every 4 (four) hours as needed for Wheezing or Shortness of Breath. [facility] OXcarbazepi ne (TRILEPTAL) 300 mg tablet 10-18 00:00: 00 Yes [id number] 300mg Take 1 Tab by mouth 2 (two) times daily. Take 1 tabs in am and 1 tab in pm for 1 week prior to incrasing to 2 tabs in am and 2 tabs in pm. [facility] Vital Signs Vital Name Observation Time Observation Value Comments Enrique lemus Systolic blood pressure 2024-07-08 21:12:00 137 mm[Hg] [facility] Diastolic blood pressure 2024-07-08 21:12:00 88 mm[Hg] [facility] Heart rate 2024-07-08 21:12:00 67 /min [facility] Body temperature 2024-07-08 21:12:00 37.11 Bessy [facility] Respiratory rate 2024-07-08 21:12:00 15 /min [facility] Oxygen saturation in Arterial blood by Pulse oximetry 2024-07-08 21:12:00 99 /min [facility] Body height 2024-07-08 18:37:00 185.4 cm [facility] Body weight 2024-07-08 18:37:00 136.079 kg [facility] BMI 2024-07-08 18:37:00 39.58 kg/m2 [facility] Systolic blood pressure 2024-07-06 17:46:00 147 mm[Hg] [facility] Diastolic blood pressure 2024-07-06 17:46:00 86 mm[Hg] [facility] Heart rate 2024-07-06 17:46:00 59 /min [facility] Body temperature 2024-07-06 17:46:00 37 Bessy [facility] Respiratory rate 2024-07-06 17:46:00 16 /min [facility] Oxygen saturation in Arterial blood by Pulse oximetry 2024-07-06 17:46:00 100 /min [facility] Body height 2024-07-06 14:44:00 185.4 cm [facility] Body weight 2024-07-06 14:44:00 145.151 kg [facility] BMI 2024-07-06 14:44:00 42.22 kg/m2 [facility] Procedures Procedure Date / Time Performed Performing Clinician Source XR CHEST 2 VW 2024-07-08 19:35:01 John Andre [facility] TROPONIN I 2024-07-08 19:07:00 John Andre [facility] COMP. METABOLIC PANEL ([id number]) 2024-07-08 19:07:00 John Andre [facility] CBC WITH DIFF 2024-07-08 19:07:00 John Andre [facility] N-TERMINAL PRO-BNP 2024-07-08 19:07:00 Capri Andre [facility] URINALYSIS 2024-07-08 18:53:00 John Andre [facility] URINE DRUG (IMMUNOASSAY) - COMPREHENSIVE DRUG SCREEN W/O REFLEX 2024-07-08 18:53:00 John Andre [facility] FENTANYL (IMMUNOASSAY) 2024-07-08 18:53:00 Rachele nAdre [facility] POCT GLUCOSE (AUTOMATED) 2024-07-06 17:01:00 Slime Smart [facility] POCT GLUCOSE(AGE >30DAYS) 2024-07-06 17:00:00 Slime Smart [facility] XR CHEST 1 VW 2024-07-06 15:32:00 Slime Smart [facility] INFLUENZA A/B RSV COVID NAAT 2024-07-06 15:14:00 Slime Smart [facility] Encounters Start Date/Time End Date/Time Encounter Type Admission Type Attending Clinicians Care Facility Care Department Encounter ID Source 2024-07-08 13:40:00 2024-07-08 16:14:00 Emergency X JOHN ANDRE ERT [id number] [facility] 2024-07-08 13:40:00 2024-07-08 16:14:00 Emergency John Andre [facility] [id number] [facility] 2024-07-06 09:45:00 2024-07-06 12:47:00 Emergency X Slime SMART K [place] ERT [id number] [facility] 2024-07-06 09:45:00 2024-07-06 12:47:00 Emergency Slime Smart [facility] .[id number] [facility] Results Test Description Test Time Test Comments Results Resul t Comments Source XR CHEST 2 VW 2024-06-15 5 20:40:31 EXAM: XR CHEST 2 VW 07/08/2024 2:29 PM HISTORY: 23 years-old Male with SOB TECHNIQUE: Frontal and lateral views of the chest. COMPARISON: Chest x-ray 07/06/2024 FINDINGS: Lungs: The lungs are clear. No focal opacities. No pleural abnormalitiesare detected. Heart/Mediastinum: The cardiomediastinal silhouette is normal in size. Musculoskeletal: No acute osseous abnormality. [id number] 19:49:05* Test Item Value Reference Range Interpretation Comme nts NT-proBNP (test code = 60809-3) <=125 Lab Interpretation (test cod e = 19165-2) Normal [facility]OLIC PAN[facility] ([id number])2024-07-08 19:39:41* Test Item Value Reference Range Interpretation Comme nts NA (test code = 3664625135) 136 mmol/L 135-145 K (test code = 3976081622) 4.2 mmol/L 3.5-5.0 CL (test code = 1703508711) 100 mmol/L 98-108 CO2 TOTAL (test code = 0158853533) 27 mmol/L 23-31 AGAP (test code = 6214308442) 9 2-16 BUN (test code = 6707930855) 13 mg/dL 7-23 GLUCOSE (test code = 7130418574) 105 mg/dL 70-110 CREATININE (test code = 2160-0) 1.13 mg/dL 0.60-1.25 TOTAL BILI (test code = 8405266258) 1.0 mg/dL 0.1-1.1 CALCIUM (test code = 5312639257) 9.6 mg/dL 8.6-10.6 T PROTEIN (test code = 9014237992) 8.5 g/dL 6.3-8.2 H ALBUMIN (test code = 7062126175) 5.0 g/dL 3.5-5.0 ALK PHOS (test code = 9557098974) 58 U/L 34-122 ALTv (test code = 1742-6) 20 U/L 5-50 AST(SGOT) (test code = 1710569694) 34 U/L 13-40 eGFR (test code = 44521-6) 93.1 mL/min/1.73m2 CKD-EPI eGFR (2020). Assuming creatinine has been stable day-to-day for at least three months, the eGFR indicates Category G1 (>= 90 mL/min/1.73 m2) Lab Interpretation (test code = 08388-4) Abnormal [facility] WITH [id number] 19:27:38* Test Item Value Reference Range Interpretation Comme nts WBC (test code = 6690-2) 7.59 4.20-10.70 RBC (test code = 789-8) 4.90 4.26-5.52 HGB (test code = 718-7) 15.8 g/dL 12.2-16.4 HCT (test code = 4544-3) 43.1 % 38.4-49.3 MCV (test code = 787-2) 88.0 fL 81.7-95.6 MCH (test code = 785-6) 32.2 pg 26.1-32.7 MCHC (test code = 786-4) 36.7 g/dL 31.2-35.0 H RDW-SD (test code = 18774-3) 38.6 fL 38.5-51.6 RDW-CV (test code = 788-0) 11.9 % 12.1-15.4 L PLT (test code = 777-3) 327 150-328 MPV (test code = 06845-8) 10.1 fL 9.8-13.0 NRBC/100 WBC (test code = 5789697222) 0.0 0.0-10.0 NRBC x10^3 (test code = 3791811540) See_Comment [Automated messa ge] The system which generated this result transmitted reference range: 10*3/?L. The reference range was not used to interpret this result as normal/abnormal. GRAN MAT (NEUT) % (test code = 770-8) 59.6 % IMM GRAN % (test code = 7205786771) 1.10 % LYMPH % (test code = 736-9) 29.6 % MONO % (test code = 5905-5) 8.6 % EOS % (test code = 713-8) 0.4 % BASO % (test code = 706-2) 0.7 % GRAN MAT x10^3(ANC) (test code = 8163811374) 4.53 10*3/uL 1.99-6.95 IMM GRAN x10^3 (test code = 7591940136) 0.08 10*3/uL 0.00-0.06 H LYMPH x10^3 (test code = 731-0) 2.25 10*3/uL 1.09-3.23 MONO x10^3 (test code = 742-7) 0.65 10*3/uL 0.36-1.02 EOS x10^3 (test code = 711-2) 0.03 10*3/uL 0.06-0.53 L BASO x10^3 (test code = 704-7) 0.05 10*3/uL 0.01-0.09 Lab Interpretation (test code = 27919-3) Abnormal [facility] GLU[facility]SE ([facility]OMATED)2024-07-06 17:02:04* Test Item Value Reference Range Interpretation Comme [facility] POCT GLU (test code = 4813884227) 92 mg/dL 70-110 Lab Interpretation (test cod e = 89212-9) Normal [facility] Glucose(Age >30days)2024-07-06 17:00:00* Test Item Value Reference Range Interpretation Comme nts POCT Glu (age>30days) (test code = 3342) 92 mg/dL 70-110 Lab Interpretation (test cod e = 15669-6) Normal [facility] 1 [id number] 16:32:37EXAM: XR CHEST 1 VW COMPARISON: None. HISTORY: cough FINDINGS: Lungs: The lungs are adequately expanded. No focal consolidation. Nopleural effusion. No pneumothorax. Heart/Mediastinum: The cardiac silhouette appears normal accounting fortechnique and degree of inspiration. Bones and soft tissues: No osseous abnormality is visualized.[facility] Notes Date/Time Note Provider Source 2024-07-08 16:13:28 Pt given printed and verbal discharge instructions regarding atypical chest pain, cough, post-nasal drip, allergic rhinitis, and SOB, encouraged hydration. Prescriptions provided. Pt verbalized understanding of instructions, pt awake alert oriented, resp reg unlabored, skin w/d, color appropriate for race, moves all ext well, pt encouraged to follow up with pcp. Advised to seek medical attention for new/prolonged/worsening of symptoms. Symptoms addressed. No adverse reaction to meds given in ER noted upon discharge. PIV d'cd, dressing to site, catheter intact. Pt leaving amb with steady gait, in no apparent distress. Asuncion Bautista RN [facility] 2024-07-08 13:34:30 Pt. Presents to ED ambulatory with steady gait with left side chest pain that feels heavy & tight that radiates to left shoulder; pt. Was seen at [facility] ED on Sunday& was seen prior by SY COSTA; pt. Reports the pain has worsened; pt. Reports, "I'm not getting any better;" pt. Reports mild SOB & reports walking makes it better; denies cough; denies N/V; reports diarrhea Martine Corbett RN [facility] 2024-07-06 12:46:00 PT D/C home. GCS15, VS stable. Given D/C paperwork. Pt ambulatory at time of discharge. Pt educated on med usage, follow up care, s/s worsening condition, need for hydration. Pt verbalized understanding. Pt ambulated from ED in NAD. Prescription x 3 sent to pharmacy. Diamond Michaud RN [facility] 2024-07-06 09:42:05 Patient states: "I've having diarrhea and it's foamy. Also when I breath is hurts right here (points to right chestwall). My throat feels dry when I try to swallow. My man junk doesn't even get hard, it doesn't go up" Pmhx: Sleep apnea, seizures, tonsils/ adenoids removed. Amna Crowley RN [facility]
--- NOTE | 2024-07-09 20:10 | RAD REPORT ---
EXAM: CT brain without contrast HISTORY: Numbness COMPARISON: 2008 TECHNIQUE: Multiple contiguous axial images were obtained and a CT of the brain without contrast.. Sagittal and coronal reconstruction performed. Automated exposure control, adjustment of the mA and/or kV according to patient size, and/or iterative reconstruction. Unless otherwise specified, incidental f indings do not require dedicated imaging follow-up FINDINGS: Some images are degraded by beam hardening artifact An intracranial bleed is not seen Ventricles are normal caliber No extra-axial fluid collection noted No significant hypodensity within the brain No fluid within the visualized sinuses or mastoids noted. IMPRESSION: No acute intracranial abnormality noted. If the patient continues to have symptoms to suggest an acute intracranial abnormality then MRI of th e brain would be recommended.
--- NOTE | 2024-07-09 20:14 | ER ---
Nurse's Notes [facility] Name: Justen Salgado Age: 23 yrs Sex: Male : 2000 Arrival Date: 07/09/2024 Time: 18:50 Bed DX4 Private MD: Diagnosis: Paresthesia of skin Presentation: 07/09 19:16 Chief complaint: Patient states: cant feel his left side and he is sweating a lot, he iw has been here off and on since the for the same issue. Coronavirus screen: At this time, the client does not indicate any symptoms associated with coronavirus-19. Ebola Screen: No symptoms or risks identified at this time. Initial Sepsis Screen: Does the patient meet any 2 criteria? No. Patient's initial sepsis screen is negative. Does the patient have a suspected source of infection? No. Patient's initial sepsis screen is negative. Risk Assessment: Do you want to hurt yourself or someone else? Patient reports no desire to harm self or others. 19:16 Method Of Arrival: Ambulatory iw 19:16 Acuity: YVETTE 3 iw Historical: - Allergies: 19:17 No Known Allergies; iw - PMHx: 19:17 Seizure; iw - Immunization history:: Adult Immunizations not up to date. - Infectious Disease History:: Denies. - Social history:: Smoking status: . Screenin:49 [facility] ED Fall Risk Assessment (Adult) History of falling in the last 3 months, iw including since admission No falls in past 3 months (0 pts) Confusion or Disorientation No (0 pts) Intoxicated or Sedated No (0 pts) Impaired Gait No (0 pts) Mobility Assist Device Used No (0 pt) Altered Elimination No (0 pt) Score/Fall Risk Level 0 - 2 = Low Risk Oriented to surroundings, Educated pt \T\ family on fall prevention, incl call for assistance when getting out of bed. Abuse screen: Denies threats or abuse. Nutritional screening: No deficits noted. Tuberculosis screening: No symptoms or risk factors identified. Assessment: 19:16 General: Appears in no apparent distress. Behavior is calm, cooperative. Pain: Denies iw pain. Neuro: Level of Consciousness is awake, alert, obeys commands, Oriented to person, place, time, situation, Moves all extremities. Full function. Cardiovascular: Patient's skin is warm and dry. Respiratory: Respiratory effort is even, unlabored, Respiratory pattern is regular, symmetrical. Vital Signs: 19:22 BP 138 / 80; Pulse 72; Resp 15; Temp 97.9; Pulse Ox 100% on R/A; Weight 145.15 kg; iw Height 6 ft. 1 in. ; 19:22 Body Mass Index 42.22 (145.15 kg, 185.42 cm) iw ED Course: 18:52 Patient arrived in ED. mr 18:52 Mirtha Walsh FNP-C [facility]. kb 18:52 Ron Messer MD is Attending Physician. kb 19:17 Triage completed. iw 19:56 CT Head Brain wo Cont In Process Unspecified. EDMS 20:06 Kaushik Dill MD is Attending Physician. kb 20:49 Carolina Laughlin, RN is Primary Nurse. iw 20:49 Patient has correct armband on for positive identification. Provided Education on: . iw 20:49 No provider procedures requiring assistance completed. Patient did not have IV access iw during this emergency room visit. Administered Medications: No medications were administered Medication: 20:49 VIS not applicable for this client. iw Outcome: 20:13 Discharge ordered by MD. kb 20:50 Discharged to home ambulatory, iw 20:50 Condition: good 20:50 Discharge instructions given to patient, Instructed on discharge instructions, follow up and referral plans. Demonstrated understanding of instructions, follow-up care, 20:50 Patient left the ED. iw Signatures: Dispatcher [employer] EDNE Mirtha Walsh FNP-C FNP-Ckb Nicole Bautista, Reg Reg mr Carolina Laughlin, RN RN iw
--- NOTE | 2024-07-09 20:14 | EDPHYS ---
Physician Documentation [facility] Name: Justen Salgado Age: 23 yrs Sex: Male : 2000 Arrival Date: 07/09/2024 Time: 18:50 Bed DX4 Private MD: ED Physician Kaushik Dill HPI: 07/09 19:19 This 23 yrs old Black Male presents to ER via Ambulatory with complaints of Excessive kb sweating. 19:19 Pt is a 23 year old male who presents for excessive sweating and numbness to left side kb that started on June 20. States he was seen here on that day, then at [place] ER twice. Now came back here because symptoms have not improved and he wants a MRI to check his brain. . Historical: - Allergies: 19:17 No Known Allergies; iw - PMHx: 19:17 Seizure; iw - Immunization history:: Adult Immunizations not up to date. - Infectious Disease History:: Denies. - Social history:: Smoking status: . ROS: 19:19 Constitutional: As per HPI kb Exam: 19:19 Constitutional: This is a well developed, well nourished patient who is awake, alert, kb and in no acute distress. Head/Face: Normocephalic, atraumatic. ENT: Moist Mucous membranes Cardiovascular: Regular rate Respiratory: Respirations even and unlabored. No increased work of breathing. Talking in full sentences Abdomen/GI: Soft, non-tender. No distention Skin: Warm, dry with normal turgor. Normal color. MS/ Extremity: Pulses equal, no cyanosis. Neurovascular intact. Full, normal range of motion. Neuro: Awake and alert, GCS 15, oriented to person, place, time, and situation. Vital Signs: 19:22 BP 138 / 80; Pulse 72; Resp 15; Temp 97.9; Pulse Ox 100% on R/A; Weight 145.15 kg; iw Height 6 ft. 1 in. ; 19:22 Body Mass Index 42.22 (145.15 kg, 185.42 cm) iw MDM: 18:53 Medical Screening Exam initiated kb 19:20 Data reviewed: vital signs, nurses notes. kb 19:23 External Records Reviewed: Outside ED record: CMP, CBC, BNP, troponin done at [facility] ER kb in [place] yesterday. Results reviewed. all wnl. 20:11 Differential diagnosis: paresthesias, abnormal electrolytes, cva. Test considered but kb Not performed: Labs: CBC and CMP considered but were done yesterday at [place], reviewed and within normal limits. Counseling: I had a detailed discussion with the patient and/or guardian regarding the historical points, exam findings, and any diagnostic results supporting the discharge/admit diagnosis, radiology results, the need for outpatient follow up, a family practitioner, to return to the emergency department if symptoms worsen or persist or if there are any questions or concerns that arise at home. ED course: Patient ambulatory with steady gait, full range of motion of all extremities, equal strength.. 07/09 19:23 Order name: CT Head Brain wo Cont; Complete Time: 20:11 kb Administered Medications: No medications were administered Disposition Summary: 07/09/24 20:13 Discharge Ordered Notes: Location: Home kb Condition: Stable kb Diagnosis - Paresthesia of skin kb Followup: kb - With: Private Physician - When: 2 - 3 days - Reason: Recheck today's complaints, Continuance of care, Re-evaluation by your physician Followup: kb - With: Emergency Department - When: As needed - Reason: Worsening of condition Discharge Instructions: - Discharge Summary Sheet kb - Paresthesia, [id number] kb Forms: - Medication Reconciliation Form kb - Antibiotic Education kb - Prescription Opioid Use kb - Patient Portal Instructions kb - Leadership Thank You Letter kb Signatures: Dispatcher [employer] Mirtha Renteria, SEAMER PANTY HOSE-C SEAMER PANTY HOSE-Carolina Abraham RN RN iw Corrections: (The following items were deleted from the chart) 20:11 19:19 Pt is a 23 year old male who presents for excessive sweating and numbness to left kb side that started on June 20. States he was seen here on that day, then at [place] ER twice. Now came back here because symptoms have not improved. . kb 20:13 20:13 Dizziness and giddiness kb kb
[2024-07-09 22:04] VITALS: BP 138/80; TEMP 97.9; O2SAT 100
== END 2024-07-09 20:50 | disposition home or self-care (01) ==
LOC: ER 18:50
DX: R20.2 Paresthesia of skin (principal)
CPT/HCPCS: 70450; 99282